=== PATIENT | male | born 1970 | race Caucasian/White ===

== ENCOUNTER 2016-11-20 20:13 | Emergency (ER) | payer SELFPAY ==
[~2016-11-20] VITALS: Ht 177.8 cm; Wt 73.8 kg
[2016-11-20 20:56] LABS: HEMATOCRIT 46.2 % (38.0-50.0); MCH 30.8 PG (29.0-34.0); MCHC 33.3 G/DL (30.0-36.0); MCV 92.4 FL (86-99); MEAN PLAT.VOLUME 10.1 uM^3 (9.0-12.4); PLATELET COUNT 228 K/uL (156-360); RBC DIS.WIDTH-CV 13.4 % (11.8-14.6); RBC DIS.WIDTH-SD 45.5 % (39-53); WHITE BLOOD COUNT 8.3 K/uL (4.1-10.2)
[2016-11-20 21:06] LABS: CHLORIDE 107 mEq/L (99-109); POTASSIUM 4.3 mEq/L (3.7-5.4); SODIUM 141 mEq/L (136-147)
[2016-11-20 21:07] LABS: GLUCOSE 108 mg/dL (70-99)
[2016-11-20 21:09] LABS: ANION GAP 8 MEQ/L (2-14)
[2016-11-20 21:11] LABS: GFR ESTIMATE (CALCULATED) > 59 mL/min/
[2016-11-20 21:12] LABS: UREA NITROGEN (BUN) 15 mg/dL (9-23)
[2016-11-20 21:18] LABS: TROP-I INTERPRETATION NEGATIVE; TROPONIN-I < 0.01 ng/mL (0.0-0.30)
[2016-11-21 00:54] LABS: TROP-I INTERPRETATION NEGATIVE; TROPONIN-I < 0.01 ng/mL (0.0-0.30)
[2016-11-21] MEDS ORDERED: VENTOLIN HFA18 GM IH (01:20)
[2016-11-21 01:24] VITALS: BP 96/64
== END 2016-11-21 01:27 | disposition home or self-care (01) ==
LOC: EME 20:13
PROVIDERS: Emergency Medicine
DX: R07.89 Other chest pain (principal); F17.200 Nicotine dependence, unspecified, uncomplicated; Z71.6 Tobacco abuse counseling
CPT/HCPCS: 71020; 80048; 84484; 85027; 93005; 94640; 99281; 99284